=== PATIENT | male | born 1995 | race Caucasian/White ===

== ENCOUNTER 2022-09-02 19:10 | Emergency (ER) | payer OTHER ==
[~2022-09-02] VITALS: Ht 170.2 cm; Wt 78.5 kg
[2022-09-02 21:55] VITALS: BP 128/80
[2022-09-02] MEDS: LORAZEPAM 1 MG TABLET PO ONE (22:04)
== END 2022-09-02 22:12 | disposition home or self-care (01) ==
LOC: EDH 19:10
DX: F20.9 Schizophrenia, unspecified (principal); F41.9 Anxiety disorder, unspecified; F32.A Depression, unspecified; F43.10 Post-traumatic stress disorder, unspecified

== ENCOUNTER 2022-09-04 22:51 | Emergency (ER) | payer OTHER ==
[~2022-09-04] VITALS: Ht 172.7 cm; Wt 78.0 kg
[2022-09-04] MEDS ORDERED: HYDROXYZINE 50MG VIAL 50 MG/ML VIAL IM SCH (23:00)
[2022-09-04] MEDS ORDERED: HYDROXYZINE 25 MG TABLET ONE (23:21)
[2022-09-05] MEDS ORDERED: HYDR25CA PO (00:13)
[2022-09-05 00:15] VITALS: BP 121/73
== END 2022-09-05 00:22 | disposition home or self-care (01) ==
LOC: EDH 22:51
DX: F41.9 Anxiety disorder, unspecified (principal); F20.9 Schizophrenia, unspecified; K21.9 Gastro-esophageal reflux disease without esophagitis; G47.00 Insomnia, unspecified; F43.10 Post-traumatic stress disorder, unspecified; Z88.8 Allergy status to other drugs, medicaments and biological substances; Z90.49 Acquired absence of other specified parts of digestive tract
CPT/HCPCS: 99283; 96372; J3410

== ENCOUNTER 2022-09-13 23:55 | Emergency (ER) | payer OTHER ==
[~2022-09-13] VITALS: Ht 170.2 cm; Wt 83.5 kg
[~2022-09-13 23:55] MED LIST: HYDR25CA PO
[2022-09-14 00:32] LABS: APPEARANCE,URINE CLEAR (CLEAR); BASOPHILS % (AUTO) 0.4 % (0.0-5.0); BILIRUBIN,URINE NEGATIVE (NEGATIVE); COLOR,URINE COLORLESS (YELLOW); EOSINOPHILS % (AUTO) 3.4 % (0.0-8.0); GLUCOSE, URINE (UA) NEGATIVE (NEGATIVE); HEMATOCRIT 40.8 % (42-54); KETONES,URINE NEGATIVE (NEGATIVE); LEUKOCYTE ESTERASE ,URINE NEGATIVE Leu/uL (NEGATIVE); LYMPHOCYTES % (AUTO) 35.5 % (21.0-51.0); MEAN CORPUSCULAR HEMOGLOBIN 29.6 pg (27.0-33.0); MEAN CORPUSCULAR HGB CONC 34.6 g/dL (32.0-36.0); MEAN CORPUSCULAR VOLUME 85.7 fL (79-99); NITRATE,URINE NEGATIVE (NEGATIVE); OCCULT BLOOD,URINE NEGATIVE (NEGATIVE); PH,URINE 6.5 (5.0-8.0); PLATELET COUNT (AUTO) 203 K/uL (130-400); PROTEIN,URINE NEGATIVE (NEGATIVE); RED BLOOD CELL COUNT(AUTO) 4.76 MIL/uL (4.50-6.20); RED CELL DISTRIBUTION WIDTH 11.9 % (11.0-15.5); UROBILINOGEN,URINE 0.2 mg/dL (0.2-1.0)
[2022-09-14 00:42] LABS: CARBON DIOXIDE 27 mmol/L (21-32); CHLORIDE 101 mmol/L (101-111); CREATININE 0.8 mg/dL (0.5-1.5); GLOMERULAR FILTR. RATE CALC 124 mL/min (>60); GLUCOSE,RANDOM 106 mg/dL (70-105); POTASSIUM 3.6 mmol/L (3.5-5.1); SODIUM SERUM 139 mmol/L (136-145); UREA NITROGEN, BLOOD 11 mg/dL (7-18)
[2022-09-14 00:48] LABS: ACETAMINOPHEN 7 mcg/mL (10-29); ALANINE AMINOTRANSFERASE 71 U/L (12-78); ALBUMIN 3.6 g/dL (3.5-5.0); ALCOHOL, BLOOD < 3 mg/dL (0-10); ASPARTATE AMINOTRANSFERASE 26 U/L (10-37); TOTAL PROTEIN, SERUM 7.4 g/dL (6.0-8.3)
[2022-09-14 00:49] LABS: SALICYLATE < 2.8 mg/dL (2.8-20.0)
[2022-09-14 00:54] LABS: AMPHET/METH SCREEN,URINE NEGATIVE (NEGATIVE); BARBITURATE SCREEN, URINE NEGATIVE (NEGATIVE); BENZODIAZEPINES SCREEN,URINE NEGATIVE (NEGATIVE); CANNABINOID SCREEN,URINE NEGATIVE (NEGATIVE); COCAINE SCREEN,URINE NEGATIVE (NEGATIVE); OPIATE SCREEN,URINE NEGATIVE (NEGATIVE); PHENCYCLIDINE SCREEN,URINE NEGATIVE (NEGATIVE)
[2022-09-14 03:10] VITALS: BP 132/78
[2022-09-14] MEDS ORDERED: DiphenhydrAMINE HCL 50 MG/ML VIAL ONE (03:18)
[2022-09-14] MEDS ORDERED: DiphenhydrAMINE HCL 50 MG/ML VIAL IM ONE (03:30)
== END 2022-09-14 03:30 | disposition home or self-care (01) ==
LOC: EDH 23:55
DX: R25.1 Tremor, unspecified (principal); R45.851 Suicidal ideations; F20.9 Schizophrenia, unspecified; F41.9 Anxiety disorder, unspecified; F32.A Depression, unspecified; F43.10 Post-traumatic stress disorder, unspecified; G47.00 Insomnia, unspecified; Z20.822 Contact with and (suspected) exposure to COVID-19; Z79.899 Other long term (current) drug therapy; Z88.8 Allergy status to other drugs, medicaments and biological substances
CPT/HCPCS: 99283; 87635; 80053; 80305; 85025; 36415; 81003; 96372; G0481; C9803; J1200

== ENCOUNTER 2022-09-17 13:35 | Emergency (ER) | payer OTHER ==
[~2022-09-17] VITALS: Ht 172.7 cm; Wt 79.4 kg
[2022-09-17] MEDS ORDERED: CHARCOAL/AQUA 25GM/120ML ONE (13:44)
[2022-09-17] MEDS ORDERED: CHARCOAL/SORBITOL 50 GM/240 ML SUSP PO SCH (14:00)
[2022-09-17 14:16] LABS: APPEARANCE,URINE CLEAR (CLEAR); BILIRUBIN,URINE NEGATIVE (NEGATIVE); COLOR,URINE COLORLESS (YELLOW); GLUCOSE, URINE (UA) NEGATIVE (NEGATIVE); KETONES,URINE NEGATIVE (NEGATIVE); LEUKOCYTE ESTERASE ,URINE NEGATIVE Leu/uL (NEGATIVE); NITRATE,URINE NEGATIVE (NEGATIVE); OCCULT BLOOD,URINE NEGATIVE (NEGATIVE); PH,URINE 6.5 (5.0-8.0); PROTEIN,URINE NEGATIVE (NEGATIVE); UROBILINOGEN,URINE 0.2 mg/dL (0.2-1.0)
[2022-09-17 14:34] LABS: AMPHET/METH SCREEN,URINE NEGATIVE (NEGATIVE); BARBITURATE SCREEN, URINE NEGATIVE (NEGATIVE); BENZODIAZEPINES SCREEN,URINE NEGATIVE (NEGATIVE); CANNABINOID SCREEN,URINE NEGATIVE (NEGATIVE); COCAINE SCREEN,URINE NEGATIVE (NEGATIVE); OPIATE SCREEN,URINE NEGATIVE (NEGATIVE); PHENCYCLIDINE SCREEN,URINE NEGATIVE (NEGATIVE)
[2022-09-17 14:50] LABS: BASOPHILS % (AUTO) 0.4 % (0.0-5.0); EOSINOPHILS % (AUTO) 1.9 % (0.0-8.0); HEMATOCRIT 41.6 % (42-54); LYMPHOCYTES % (AUTO) 23.5 % (21.0-51.0); MEAN CORPUSCULAR HEMOGLOBIN 29.3 pg (27.0-33.0); MEAN CORPUSCULAR HGB CONC 34.1 g/dL (32.0-36.0); MONOCYTES % (AUTO) 5.5 % (3.0-13.0); NEUTROPHILS % (AUTO) 68.5 % (40.0-77.0); PLATELET COUNT (AUTO) 209 K/uL (130-400); RED BLOOD CELL COUNT(AUTO) 4.84 MIL/uL (4.50-6.20); RED CELL DISTRIBUTION WIDTH 11.7 % (11.0-15.5); WHITE BLOOD COUNT (AUTO) 8.3 K/uL (4.8-10.8)
[2022-09-17 14:56] LABS: CARBON DIOXIDE 28 mmol/L (21-32); CHLORIDE 103 mmol/L (101-111); CREATININE 0.8 mg/dL (0.5-1.5); GLOMERULAR FILTR. RATE CALC 124 mL/min (>60); GLUCOSE,RANDOM 76 mg/dL (70-105); POTASSIUM 3.5 mmol/L (3.5-5.1); SODIUM SERUM 138 mmol/L (136-145); UREA NITROGEN, BLOOD 8 mg/dL (7-18)
[2022-09-17 15:01] LABS: ACETAMINOPHEN < 1 mcg/mL (10-29); ALANINE AMINOTRANSFERASE 65 U/L (12-78); ALBUMIN 3.6 g/dL (3.5-5.0); ALCOHOL, BLOOD < 3 mg/dL (0-10); ASPARTATE AMINOTRANSFERASE 26 U/L (10-37); SALICYLATE < 2.8 mg/dL (2.8-20.0); TOTAL PROTEIN, SERUM 7.4 g/dL (6.0-8.3)
[2022-09-18 11:25] VITALS: BP 122/69
== END 2022-09-18 13:29 | disposition home or self-care (01) ==
LOC: EDH 13:35
DX: R45.851 Suicidal ideations (principal); Z20.822 Contact with and (suspected) exposure to COVID-19; F20.9 Schizophrenia, unspecified; F32.A Depression, unspecified; F43.10 Post-traumatic stress disorder, unspecified; Z91.51 Personal history of suicidal behavior
CPT/HCPCS: 99285; 87635; 80053; 80305; 85025; 36415; 93005 ×3; 81003; G0481; C9803